=== PATIENT | male | born 1995 | race Caucasian/White ===

== ENCOUNTER 2017-11-06 20:15 | Emergency (ER) | payer OTHER ==
[~2017-11-06] VITALS: Ht 190.5 cm; Wt 79.9 kg
[2017-11-06 22:44] VITALS: BP 128/74
== END 2017-11-06 22:46 | disposition home or self-care (01) ==
LOC: EME 20:15 → EDBD 20:15 → EME 22:46
DX: S70.11XA Contusion of right thigh, initial encounter (principal); X58.XXXA Exposure to other specified factors, initial encounter; Y93.23 Activity, snow (alpine) (downhill) skiing, snowboarding, sledding, tobogganing and snow tubing; R42 Dizziness and giddiness
CPT/HCPCS: 72170; 73552; 99281; 99284; J1885; J3010